=== PATIENT | male | born 1975 | race Caucasian/White ===

== ENCOUNTER 2017-11-09 23:34 | Emergency (ER) | payer SELFPAY ==
[~2017-11-09] VITALS: Ht 180.3 cm; Wt 87.3 kg
[2017-11-10] MEDS ORDERED: SODIUM CHLORIDE 0.9% 1,000 ML IV ONE (00:03)
[2017-11-10] MEDS ORDERED: ONDANSETRON HCL 4MG/2ML VIAL IV STA (00:03)
[2017-11-10] MEDS ORDERED: MORPHINE SULFATE 4 MG/ML CPJ (NOT FOR IM USE) IV STA (00:03)
[2017-11-10] MEDS ORDERED: TETANUS, DIPHTHERIA, PERTUSSIS VAC/PF 0.5ML (>7YR OLD) IM ONE (00:15)
[2017-11-10] MEDS ORDERED: LORAZEPAM 2MG/ML CPJ IV ONE (00:15)
[2017-11-10 00:23] LABS: BASOPHILS % 0.6 % (0.0-2.0); EOSINOPHILS % 0.9 % (0.0-5.0); HEMATOCRIT. 46.4 % (42.0-52.0); HEMOGLOBIN. 16.1 g/dL (14.0-18.0); LYMPHOCYTES % 25.8 % (20.0-50.0); MEAN CORPUSCULAR HEMOGLOBIN 30.9 pg (28.0-32.0); MEAN CORPUSCULAR VOLUME 88.9 fL (80.0-94.0); MEAN PLATELET VOLUME 8.9 fl (7.4-10.4); NEUTROPHILS % 67.7 % (40.0-76.0); PLATELET 170 x1000/uL (130-400); RED BLOOD CELL COUNT 5.22 mill/uL (4.7-6.1); RED CELL DISTRIBUTION WIDTH 12.8 % (11.6-14.6)
[2017-11-10 00:37] LABS: CHLORIDE 100 mEq/L (98-107)
[2017-11-10] MEDS ORDERED: INSULIN REGULAR (HUMULIN R) 300UNITS/3ML SUBCUT ONE (02:30)
[2017-11-10 05:54] VITALS: BP 129/78
== END 2017-11-10 06:00 | disposition home or self-care (01) ==
LOC: ER 11-10 00:45
DX: R51 Headache (principal); R73.9 Hyperglycemia, unspecified; F17.200 Nicotine dependence, unspecified, uncomplicated; V89.2XXA Person injured in unspecified motor-vehicle accident, traffic, initial encounter; Y93.89 Activity, other specified; Y92.89 Other specified places as the place of occurrence of the external cause; Y99.8 Other external cause status
CPT/HCPCS: 36415; 70450; 70486; 71045; 72125; 80048; 85025; 90471; 90715; 96372; 96374; 96375; 99285; J1815; J2060; J2270; J2405; J7030; Z7610

== ENCOUNTER 2021-11-06 05:28 | Inpatient (IN) | payer MEDICAID ==
[~2021-11-06] VITALS: Ht 188 cm; Wt 85.7 kg
[2021-11-06 06:49] LABS: BASOPHILS % 0.5 % (0.0-2.0); EOSINOPHILS % 2.3 % (0.0-5.0); HEMATOCRIT. 39.1 % (42.0-52.0); LYMPHOCYTES % 43.1 % (20.0-50.0); MEAN CORPUSCULAR HEMOGLOBIN 30.8 pg (28.0-32.0); MEAN CORPUSCULAR VOLUME 85.9 fL (80.0-94.0); MEAN PLATELET VOLUME 7.6 fl (7.4-10.4); MONOCYTES % 5.9 % (2.0-8.0); NEUTROPHILS % 48.2 % (40.0-76.0); PLATELET 152 x1000/uL (130-400); RED BLOOD CELL COUNT 4.55 mill/uL (4.7-6.1); RED CELL DISTRIBUTION WIDTH 12.8 % (11.6-14.6)
[2021-11-06 06:51] LABS: CHLORIDE 101 mEq/L (98-107)
[2021-11-06 07:00] LABS: ETHANOL BLOOD 229 mg/dL
[2021-11-06 07:53] LABS: CLARITY URINE CLEAR (CLEAR); COLOR URINE YELLOW (YELLOW); KETONES URINE NEGATIVE (NEGATIVE); LEUKOCYTE ESTERASE URINE NEGATIVE (NEGATIVE); NITRITE URINE NEGATIVE (NEGATIVE); OCCULT BLOOD URINE NEGATIVE (NEGATIVE); PROTEIN URINE NEGATIVE (NEGATIVE); SPECIFIC GRAVITY URINE 1.017 (1.005-1.030); UROBILINOGEN URINE 0.2 E.U./dL (0.2-1.0)
[2021-11-06 08:36] LABS: *AMPHETAMINES SCREEN URINE NEGATIVE (NEGATIVE); *BARBITURATES SCREEN URINE NEGATIVE (NEGATIVE); *BENZODIAZEPINES SCREEN URINE NEGATIVE (NEGATIVE); *COCAINE SCREEN URINE NEGATIVE (NEGATIVE); CANNABINOID URINE SCREEN NEGATIVE (NEGATIVE); METHADONE URINE SCREEN NEGATIVE (NEGATIVE); OPIATES URINE SCREEN NEGATIVE (NEGATIVE); PHENCYCLIDINE URINE SCREEN NEGATIVE (NEGATIVE)
[2021-11-06 10:58] VITALS: BP 118/70
[2021-11-06 11:10] VITALS: BP 118/70
[2021-11-06 12:00] VITALS: BP 112/79
[2021-11-06] MEDS ORDERED: DOCUSATE SODIUM 100MG CAPSULE PO PRN (12:00)
[2021-11-06] MEDS ORDERED: ONDANSETRON HCL 4MG/2ML INJ IV PRN (12:00)
[2021-11-06] MEDS ORDERED: ACETAMINOPHEN 325MG TABLET PO PRN ×2 (12:00)
[2021-11-06] MEDS ORDERED: NA PHOS,M-B/NA PHOS,DI-BA ENEMA 118ML PR PRN (12:00)
[2021-11-06] MEDS ORDERED: CLONIDINE 0.1MG TABLET PO PRN (12:00)
[2021-11-06] MEDS ORDERED: KETOROLAC 30MG/ML VIAL IV PRN (12:00)
[2021-11-06] MEDS ORDERED: GUAIFENESIN 200MG/10ML SUGAR FREE UDC PO PRN (12:00)
[2021-11-06] MEDS ORDERED: ZOLPIDEM TARTRATE 5MG TABLET PO PRN (12:00)
[2021-11-06] MEDS ORDERED: KETOROLAC 15MG/ML VIAL IV PRN (12:00)
[2021-11-06] MEDS ORDERED: MAGNESIUM/ALUMINUM HYDROXIDE/SIMETHICONE 30ML UDC PO PRN (12:00)
[2021-11-06] MEDS ORDERED: NITROGLYCERIN 0.4MG TABLET SL SL PRN (12:00)
[2021-11-06] MEDS ORDERED: IPRATROPIUM/ALBUTEROL 0.5-3(2.5)MG/3ML NEB NEB PRN (12:00)
[2021-11-06] MEDS: ENOXAPARIN 40MG/0.4ML SYR SUBCUT SCH (13:00)
[2021-11-06] MEDS ORDERED: MVI, ADULT NO.1 10 ML, FOLIC ACID 1 MG, THIAMINE HCL 100 MG in SODIUM CHLORIDE 0.9% 1,0... IV ONE ×4 (14:00)
[2021-11-06 15:47] VITALS: BP 120/88
[2021-11-06 20:00] VITALS: BP 119/82
[2021-11-06] MEDS ORDERED: DEXTROSE 50% WATER 50ML SYRINGE IV PRN (20:15)
[2021-11-06] MEDS: FAMOTIDINE 20MG TABLET PO SCH (20:42)
[2021-11-06] MEDS: INSULIN LISPRO 100 UNITS/ML SUBCUT SCH (20:51)
[2021-11-06] MEDS: BLOOD SUGAR DIAGNOSTIC STRIP TEST SCH (20:52)
[2021-11-07] VITALS: BP 110/67
[2021-11-07 00:12] LABS: CREATINE KINASE 51 IU/L (39-308); CREATINE KINASE MB FRACTION < 1.0 ng/mL (0.5-3.6)
[2021-11-07 04:00] VITALS: BP 126/87
[2021-11-07] MEDS: BLOOD SUGAR DIAGNOSTIC STRIP TEST SCH ×4 (06:22→21:17)
[2021-11-07 06:42] LABS: BASOPHILS % 0.6 % (0.0-2.0); EOSINOPHILS % 2.2 % (0.0-5.0); HEMATOCRIT. 39.6 % (42.0-52.0); HEMOGLOBIN. 13.7 g/dL (14.0-18.0); LYMPHOCYTES % 30.8 % (20.0-50.0); MEAN CORPUSCULAR HEMOGLOBIN 30.2 pg (28.0-32.0); MEAN CORPUSCULAR VOLUME 87.1 fL (80.0-94.0); MEAN PLATELET VOLUME 8.1 fl (7.4-10.4); MONOCYTES % 10.6 % (2.0-8.0); NEUTROPHILS % 55.8 % (40.0-76.0); PLATELET 137 x1000/uL (130-400); RED BLOOD CELL COUNT 4.55 mill/uL (4.7-6.1)
[2021-11-07 06:57] LABS: CHLORIDE 103 mEq/L (98-107)
[2021-11-07 07:28] LABS: HDL CHOLESTEROL 56 mg/dL (40-59); LDL CHOLESTEROL 91 mg/dL (5-100); PHOSPHORUS 2.9 mg/dL (2.5-4.9)
[2021-11-07 08:00] VITALS: BP 131/81
[2021-11-07] MEDS: INSULIN LISPRO 100 UNITS/ML SUBCUT SCH ×4 (08:40→21:17)
[2021-11-07] MEDS: FAMOTIDINE 20MG TABLET PO SCH ×2 (08:41→21:13)
[2021-11-07] MEDS: ASPIRIN 325MG EC TABLET PO SCH (08:41)
[2021-11-07 12:00] VITALS: BP 134/90
[2021-11-07] MEDS: ENOXAPARIN 40MG/0.4ML SYR SUBCUT SCH (13:00)
[2021-11-07 16:00] VITALS: BP 116/81
[2021-11-07 20:00] VITALS: BP 115/82
[2021-11-08] VITALS: BP 122/82
[2021-11-08 04:00] VITALS: BP 117/78
[2021-11-08] MEDS: BLOOD SUGAR DIAGNOSTIC STRIP TEST SCH ×2 (06:35→12:20)
[2021-11-08 08:27] VITALS: BP 124/84
[2021-11-08] MEDS: ASPIRIN 325MG EC TABLET PO SCH (09:03)
[2021-11-08] MEDS: FAMOTIDINE 20MG TABLET PO SCH (09:03)
[2021-11-08] MEDS: INSULIN LISPRO 100 UNITS/ML SUBCUT SCH ×2 (09:05→12:33)
[2021-11-08] MEDS ORDERED: GLIP5TAB12 MT (09:50)
[2021-11-08] MEDS ORDERED: METF-416 MT (09:50)
[2021-11-08] MEDS ORDERED: ASPI-1406 MT (09:50)
[2021-11-08 11:44] VITALS: BP 124/84
[2021-11-08] MEDS: ENOXAPARIN 40MG/0.4ML SYR SUBCUT SCH (12:34)
[2021-11-08 12:50] VITALS: BP 124/84
== END 2021-11-08 13:40 | disposition home or self-care (01) | DRG 47 ==
LOC: ER 05:28 → 6WST 08:42 → ENRESERV 09:33
PROVIDERS: ADMIT Internal Medicine; ATTEND Internal Medicine
DX: G45.9 Transient cerebral ischemic attack, unspecified (principal); E83.51 Hypocalcemia; J38.01 Paralysis of vocal cords and larynx, unilateral; E87.1 Hypo-osmolality and hyponatremia; E11.65 Type 2 diabetes mellitus with hyperglycemia; F10.129 Alcohol abuse with intoxication, unspecified; R79.89 Other specified abnormal findings of blood chemistry; R07.89 Other chest pain; Z53.20 Procedure and treatment not carried out because of patient's decision for unspecified reasons
CPT/HCPCS: 36415; 70496; 70498; 71045; 80053; 80061; 80305; 80320; 81003; 82550; 82553; 82962; 83036; 83735; 84100; 84484; 85025; 93005; 93306; 93970; 99291; J1650; J1815; J3411; J3490; J7030; G0480

== ENCOUNTER 2022-07-31 16:55 | Emergency (ER) | payer MEDICAID ==
[~2022-07-31] VITALS: Ht 177.8 cm; Wt 87.0 kg
[~2022-07-31 16:55] MED LIST: ASPI-1406 MT; GLIP5TAB12 MT; METF-416 MT
[2022-07-31] MEDS ORDERED: LEVOFLOXACIN 250MG TABLET PO STA (20:11)
[2022-07-31] MEDS ORDERED: KETOROLAC 15MG/ML VIAL IM ONE (20:15)
[2022-07-31] MEDS ORDERED: TETANUS AND DIPHTHERIA TOX/PF 0.5ML SYR (ADULT) IM ONE (20:15)
[2022-07-31] MEDS ORDERED: TETANUS, DIPHTHERIA, PERTUSSIS VAC/PF 0.5ML (>10YR OLD) IM ONE (20:30)
[2022-07-31 20:37] VITALS: BP 121/90
[2022-07-31] MEDS ORDERED: NAPR-681 MT (20:43)
[2022-07-31] MEDS ORDERED: CIPR-263 MT (20:43)
== END 2022-07-31 21:08 | disposition home or self-care (01) ==
LOC: ER 16:55
DX: L03.115 Cellulitis of right lower limb (principal); E11.9 Type 2 diabetes mellitus without complications; W51.XXXA Accidental striking against or bumped into by another person, initial encounter; Y93.89 Activity, other specified; Y92.89 Other specified places as the place of occurrence of the external cause; Y99.8 Other external cause status
CPT/HCPCS: 73630; 90471; 90715; 96372; 99284; J1885; Z7610; 90714

== ENCOUNTER 2023-10-09 11:29 | Emergency (ER) | payer MEDICAID ==
[~2023-10-09] VITALS: Ht 177.8 cm; Wt 73.0 kg
[~2023-10-09 11:29] MED LIST changes: +CEPH500C2 MT; -GLIP5TAB12 MT; +NAPR-681 MT
[2023-10-09 11:33] VITALS: BP 136/95; PULSE 109; RESP 16; O2SAT 98
[2023-10-09] MEDS ORDERED: CARB-274 EACH EAR (13:01)
[2023-10-09] MEDS ORDERED: AMOX-494 MT (13:06)
[2023-10-09 13:11] VITALS: TEMP 98.7
[2023-10-09] MEDS: ACETAMINOPHEN 325MG TABLET PO ONE (13:11)
== END 2023-10-09 13:34 | disposition home or self-care (01) ==
LOC: ER 11:29
DX: H61.23 Impacted cerumen, bilateral (principal); E11.9 Type 2 diabetes mellitus without complications; E78.00 Pure hypercholesterolemia, unspecified; I10 Essential (primary) hypertension; Z98.890 Other specified postprocedural states
CPT/HCPCS: 99283

== ENCOUNTER 2025-03-16 22:26 | Emergency (ER) | payer MEDICAID ==
[~2025-03-16] VITALS: Ht 177.8 cm; Wt 110.0 kg
[~2025-03-16 22:26] MED LIST changes: +AMOX-494 MT; +CARB-274 EACH EAR
[2025-03-16 22:34] VITALS: O2SAT 96
[2025-03-16 23:18] VITALS: BP 120/82; PULSE 95; RESP 19; TEMP 36.7; O2SAT 96
[2025-03-16 23:46] LABS: BASOPHILS % 0.7 % (0.0-2.0); EOSINOPHILS % 2.2 % (0.0-5.0); HEMATOCRIT. 39.2 % (42.0-52.0); HEMOGLOBIN. 13.6 g/dL (14.0-18.0); LYMPHOCYTES % 40.6 % (20.0-50.0); MEAN PLATELET VOLUME 7.7 fl (7.4-10.4); MONOCYTES % 6.2 % (2.0-8.0); NEUTROPHILS % 50.3 % (40.0-76.0); PLATELET 134 x1000/uL (130-400); RED BLOOD CELL COUNT 4.51 mill/uL (4.7-6.1); RED CELL DISTRIBUTION WIDTH 12.9 % (11.6-14.6)
[2025-03-17] LABS: CREATININE 0.9 mg/dL (0.6-1.3)
[2025-03-17 00:01] LABS: UREA NITROGEN BLOOD 10 mg/dL (9-23)
[2025-03-17 00:02] LABS: ASPARTATE AMINOTRANSFERASE 87 IU/L (<34)
[2025-03-17 00:03] LABS: BILIRUBIN DIRECT 0.1 mg/dL (<=3.0); BILIRUBIN TOTAL 0.4 mg/dL (0.1-1.0); CLARITY URINE CLEAR (CLEAR); COLOR URINE YELLOW (YELLOW); GLUCOSE URINE 2+ (NEGATIVE); KETONES URINE NEGATIVE (NEGATIVE); LEUKOCYTE ESTERASE URINE NEGATIVE (NEGATIVE); NITRITE URINE NEGATIVE (NEGATIVE); OCCULT BLOOD URINE TRACE (NEGATIVE); PH URINE 6.0 (4.5-8.0); PROTEIN TOTAL 7.1 g/dL (6.0-8.3); PROTEIN URINE TRACE (NEGATIVE); SPECIFIC GRAVITY URINE 1.008 (1.005-1.030); UROBILINOGEN URINE 0.2 E.U./dL (0.2-1.0)
[2025-03-17 01:14] LABS: BACTERIA URINE TRACE; RBC URINE NONE SEEN /hpf (0-2); SQUAMOUS EPITHELIAL CELL URINE FEW /lpf (RARE/1+); WBC URINE NONE SEEN /hpf (0-2)
== END 2025-03-17 00:12 | disposition left against medical advice (07) ==
LOC: ER 22:26
DX: R10.9 Unspecified abdominal pain (principal); E11.65 Type 2 diabetes mellitus with hyperglycemia; E78.00 Pure hypercholesterolemia, unspecified; I10 Essential (primary) hypertension; Z98.890 Other specified postprocedural states
CPT/HCPCS: 36415; 80048; 80076; 81003; 85025; 86850; 86900; 99283